=== PATIENT | male | born 1990 | race Two or more races ===

== ENCOUNTER 2018-03-02 12:22 | Emergency (ER) | payer OTHER ==
[2018-03-02 12:28] VITALS: BP 122/79; PULSE 93; TEMP 101.6; BMI 26.6
--- NOTE | 2018-03-02 12:42 | PDOC ---
History of Present Illness - General Chief Complaint: Sore Throat Stated Complaint: SORE THROAT,FEVER Time Seen by Provider: 03/02/18 12:35 - History of Present Illness Initial Comments: 03/02/18 13:27 Chief complaint: Sore throat History of present illness: Sore throat for 2 days, worse today. Pain with swallowing. Review of systems: No fever/chills, earache, cough or congestion, chest pain, shortness of breath, abdominal pain, nausea, vomiting, diarrhea. Past medical history: Healthy male, no significant medical or surgical problems Social/family history reviewed and noncontributory Physical exam: Alert and oriented well-developed well-nourished no acute distress cooperative Afebrile, vital signs normal HEENT reveals only mild pharyngeal injection without swelling mass or exudate Shoddy anterior cervical nodes are present but the neck is supple Chest clear CV regular without murmur rub or gallop Abdomen soft nontender without mass or organomegaly Skin clear, no rash, adequate turgor and wet mucous membranes Neurological intact, fully ambulatory. Impression: Pharyngitis, rule out strep Plan: Rapid strep is positive. Antibiotics, Motrin, rest, fluids, and follow-up if condition worsens. Fully ambulatory and with pain relief upon discharge to follow-up as directed Past History - Past Medical History Allergies/Adverse Reactions: Allergies Allergy/AdvReac Type Severity Reaction Status Date / Time No Known Allergies Allergy Verified 03/02/18 12:24 Home Medications: Ambulatory Orders Acetaminophen [Tylenol] 650 mg PO PRN PRN 03/02/18 Dm/Acetaminophen/Doxylamine [Vicks Nyquil Liquicaps] 1 each PO HS 03/02/18 Ibuprofen 800 mg PO TID PRN #20 tablet 03/02/18 Penicillin V Potassium [Pen Vee K -] 500 mg PO BID #20 tablet 03/02/18 COPD: No - Suicide/Smoking/Psychosocial Hx Smoking History: Never smoked Have you smoked in the past 12 months: No Information on smoking cessation initiated: No Hx Alcohol Use: No Drug/Substance Use Hx: No Substance Use Type: None *Physical Exam - Vital Signs Last Vital Signs Temp Pulse Resp BP Pulse Ox 101.6 F H 93 H 20 122/79 97 03/02/18 12:23 03/02/18 12:23 03/02/18 12:23 03/02/18 12:23 03/02/18 12:23 *DC/Admit/Observation/Transfer Diagnosis at time of Disposition: Streptococcal pharyngitis - Discharge Dispostion Disposition: HOME Condition at time of disposition: Stable Decision to Admit order: No - Prescriptions Prescriptions: Ibuprofen 800 mg PO TID PRN #20 tablet PRN Reason: Pain Penicillin V Potassium [Pen Vee K -] 500 mg PO BID #20 tablet - Referrals - Patient Instructions Printed Discharge Instructions: DI for Strep Throat - Post Discharge Activity Forms/Work/School Notes: Back to Work
[2018-03-02] MEDS ORDERED: IBUPROFEN 400 MG TABLET (FP) PO ONE ×2 (13:04→13:05)
== END 2018-03-02 13:40 | disposition home or self-care (01) ==
LOC: FER 12:22
DX: J02.0 Streptococcal pharyngitis (principal)
CPT/HCPCS: 87070; 87077; 87430; 99282-25

== ENCOUNTER 2018-07-29 00:07 | Emergency (ER) | payer OTHER ==
[2018-07-29 00:17] VITALS: BP 126/86; PULSE 64; TEMP 97.7; BMI 26.4
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
[2018-07-29] MEDS ORDERED: HIV POST EXPOSURE PROPHYLAXIS KIT NR ONE (00:25)
[2018-07-29] MEDS ORDERED: HIV POST EXPOSURE PROPHYLAXIS KIT PO ONE (00:32)
[2018-07-31 06:06] LABS: HBSAG SCREEN Negative (Negative); HEP B CORE AB, TOT Negative (Negative)
== END 2018-07-29 00:56 | disposition home or self-care (01) ==
LOC: FER 00:07
DX: S61.239A Puncture wound without foreign body of unspecified finger without damage to nail, initial encounter (principal); W46.0XXA Contact with hypodermic needle, initial encounter; Y93.89 Activity, other specified; Y92.129 Unspecified place in nursing home as the place of occurrence of the external cause; Y99.0 Civilian activity done for income or pay
CPT/HCPCS: 36415; 86704; 86706; 86708; 86803; 87340; 87389; 99281-25

== ENCOUNTER 2018-10-25 13:54 | Emergency (ER) | payer OTHER | END 2018-10-25 16:44 | disposition home or self-care (01) | LOC: JER 13:54 ==

== ENCOUNTER 2018-10-28 10:38 | Emergency (ER) | payer OTHER ==
[2018-10-28 10:43] VITALS: BP 136/87; PULSE 74; TEMP 97.5; BMI 26.2
[2018-10-28] MEDS ORDERED: SODIUM CHLORIDE 0.9% 500 ML INFUS.BAG IV ONE (11:33)
[2018-10-28] MEDS ORDERED: METOCLOPRAMIDE HCL INJECTION 10 MG/2 ML VIAL IVPUSH ONE (11:33)
[2018-10-28] MEDS ORDERED: KETOROLAC TROMETHAMINE 30 MG/1 ML VIAL IVPUSH ONE (11:33)
[2018-10-28] MEDS ORDERED: KETOROLAC TROMETHAMINE 30 MG/1 ML VIAL ONE (11:49)
[2018-10-28] MEDS ORDERED: METOCLOPRAMIDE HCL INJECTION 10 MG/2 ML VIAL ONE (11:49)
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
== END 2018-10-28 13:20 | disposition home or self-care (01) ==
LOC: JER 10:38
PROC: 3E033GC Introduction of Other Therapeutic Substance into Peripheral Vein, Percutaneous Approach (ICD-10-PCS; principal; 2018-10-28)
PROC: 3E0333Z Introduction of Anti-inflammatory into Peripheral Vein, Percutaneous Approach (ICD-10-PCS; 2018-10-28)
DX: R51 Headache (principal)
CPT/HCPCS: 96374; 96375; 99282-25

== ENCOUNTER 2019-03-22 00:47 | Emergency (ER) | payer OTHER ==
[2019-03-22 01:20] VITALS: BP 113/62; PULSE 76; TEMP 99.7; BMI 26.7
--- NOTE | 2019-03-22 01:23 | PDOC ---
History of Present Illness - General Chief Complaint: Sore Throat Stated Complaint: SORE THROAT Time Seen by Provider: 03/22/19 01:22 - History of Present Illness Initial Comments: 03/22/19 01:31 28 year old man with no pmhx who presents with sore throat for 2 days with fever. He denies cough, congestion, n/v/d/c. He took theraflu just prior to arrival. He has no other complaitns. ROS GENERAL/CONSTITUTIONAL: No fever or chills. No weakness. HEAD, EYES, EARS, NOSE AND THROAT: No change in vision. No ear pain or discharge. + sore throat. CARDIOVASCULAR: No chest pain or shortness of breath RESPIRATORY: No cough, wheezing, or hemoptysis. GASTROINTESTINAL: No nausea, vomiting, diarrhea or constipation. GENITOURINARY: No dysuria, frequency, or change in urination. MUSCULOSKELETAL: No joint or muscle swelling or pain. No neck or back pain. SKIN: No rash PE GENERAL: Awake, alert, and fully oriented, in no acute distress HEAD: No signs of trauma, normocephalic, atraumatic EYES: EOMI, sclera anicteric, conjunctiva clear ENT: oropharynx clear without exudates. Moist mucosa NECK: Normal ROM, supple LUNGS: No distress, speaks full sentences, clear to auscultation bilaterally HEART: Regular rate and rhythm, normal S1 and S2, no murmurs, rubs or gallops, peripheral pulses normal and equal bilaterally. ABDOMEN: Soft, nontender No guarding, no rebound. No masses EXTREMITIES : Normal inspection, Normal range of motion, no edema. No clubbing or cyanosis. NEUROLOGICAL: Cranial nerves II through XII grossly intact. Normal speech, normal gait, no focal sensorimotor deficits SKIN: Warm, Dry, normal turgor, no rashes or lesions noted MDM DDX including but not limited to: viral syndrome r/o strep ED Course: decadron given strep, flu negative Jessica Cline, PGY2 Emergency Medicine Past History - Past Medical History Allergies/Adverse Reactions: Allergies Allergy/AdvReac Type Severity Reaction Status Date / Time No Known Allergies Allergy Verified 03/22/19 01:18 Home Medications: Ambulatory Orders NK [No Known Home Medication] 07/29/18 COPD: No - Immunization History Immunization Up to Date: Yes - Psycho Social/Smoking Cessation Hx Smoking History: Never smoked Have you smoked in the past 12 months: No Information on smoking cessation initiated: No Hx Alcohol Use: No Drug/Substance Use Hx: No Substance Use Type: None *Physical Exam - Vital Signs Last Vital Signs Temp Pulse Resp BP Pulse Ox 99.7 F H 76 20 113/62 98 03/22/19 01:18 03/22/19 01:18 03/22/19 01:18 03/22/19 01:18 03/22/19 01:18 Discharge - Discharge Information Problems reviewed: Yes Clinical Impression/Diagnosis: Viral pharyngitis Condition: Stable Disposition: HOME - Admission No - Follow up/Referral Referrals: Saul Mace MD [Primary Care Provider] - - Patient Discharge Instructions Patient Printed Discharge Instructions: DI for Viral Pharyngitis Additional Instructions: You were seen for a sore throat Your strep and flu test were negative Drink plenty of hot fluids and use tylenol and motrin for fever relief. Return to the ED if you have worsening sore throat, difficulty breathing or any other concerning symptoms. - Post Discharge Activity
[2019-03-22] MEDS ORDERED: DEXAMETHASONE SOD PHOSPHATE 10 MG/1 ML VIAL IVPUSH ONE (01:42)
--- NOTE | 2019-03-22 01:43 | PDOC ---
Attending Attestation - Resident Resident Name: Jessica Cline - ED Attending Attestation I have performed the following: I have examined & evaluated the patient, The case was reviewed & discussed with the resident, I agree w/resident's findings & plan, Exceptions are as noted - HPI HPI: 03/22/19 01:42 28-year-old male no past medical history here today complaining of sore throat. Patient states symptoms started few days ago denies any sick contacts has had strep throat before. No kids at home no rash no cough is tolerating p.o. symptoms are mild he took TheraFlu earlier this evening felt like he had subjective fevers. No nausea no vomiting no abdominal pain no other current complaints - Physicial Exam PE: 03/22/19 01:42 Awake alert no acute distress posterior pharynx mild erythema no tonsillar exudates no hypertrophy uvula midline lungs are clear bilaterally heart is regular without murmurs rubs or gallops abdomen is soft nontender - Medical Decision Making 03/22/19 01:43 28-year-old male with pharyngitis viral causes likely. Will swab to rule out strep throat given Decadron likely DC home 03/22/19 02:06 throat swab negative. dc home with motrin prn. fu pcp
[2019-03-22] MEDS ORDERED: DEXAMETHASONE SOD PHOSPHATE 10 MG/1 ML VIAL ONE (01:51)
== END 2019-03-22 02:30 | disposition home or self-care (01) ==
LOC: JER 00:47
PROC: 3E0333Z Introduction of Anti-inflammatory into Peripheral Vein, Percutaneous Approach (ICD-10-PCS; principal; 2019-03-22)
DX: J02.9 Acute pharyngitis, unspecified (principal); B97.89 Other viral agents as the cause of diseases classified elsewhere
CPT/HCPCS: 87070; 87804; 87880; 96374; 99282-25; J1100

== ENCOUNTER 2021-03-07 13:24 | Emergency (ER) | payer OTHER ==
[2021-03-07 13:32] VITALS: BP 122/77; PULSE 64; TEMP 98; BMI 24.0
[2021-03-07 15:33] LABS: BASO % 1.1 % (0-2.0); EOS % 3.1 % (0-4.5); HEMATOCRIT 38.6 % (35.4-49); HEMOGLOBIN 12.8 GM/dL (11.7-16.9); LYMPH % 35.7 % (8-40); MCH 25.6 pg (25.7-33.7); MCHC 33.1 g/dl (32.0-35.9); MEAN CELL VOLUME 77.3 fl (80-96); MEAN PLT VOLUME 9.5 fl (7.5-11.1); MONO % 10.3 % (3.8-10.2); NEUT % 49.8 % (42.8-82.8); PLATELET COUNT 187 10^3/uL (134-434); RDW 14.8 % (11.9-15.9); WHITE BLOOD COUNT 4.4 K/mm3 (4.0-10.0)
[2021-03-07 15:39] LABS: CHLORIDE 108 mmol/L (98-107); SODIUM 139 mmol/L (136-145)
[2021-03-07 15:43] LABS: ANION GAP 0 MMOL/L (8-16); BLOOD UREA NITROGEN 10.1 mg/dL (7-18); CO2 32 mmol/L (21-32); GLUCOSE,RANDOM 99 mg/dL (74-106)
[2021-03-07 15:46] LABS: CREATININE 0.9 mg/dL (0.55-1.3); SGOT/AST 18 U/L (15-37); SGPT/ALT 19 U/L (13-61)
[2021-03-07 15:48] LABS: BILIRUBIN,TOTAL 0.2 mg/dL (0.2-1)
[2021-03-07 15:49] LABS: ALK PHOS 58 U/L (45-117)
== END 2021-03-07 16:38 | disposition home or self-care (01) ==
LOC: JER 13:24
DX: R07.9 Chest pain, unspecified (principal)
CPT/HCPCS: 36415; 71046-TC-FY; 80053; 82550; 84484; 85025; 93005; 93010; 99285-25